=== PATIENT | female | born 1965 | race Caucasian/White ===

== ENCOUNTER 2021-04-17 19:12 | Emergency (ER) | payer MEDICAID ==
[~2021-04-17] VITALS: Ht 152.4 cm; Wt 65.9 kg
[2021-04-17 22:44] VITALS: BP 133/61
== END 2021-04-18 00:28 | disposition home or self-care (01) ==
LOC: ER 19:12
DX: J20.9 Acute bronchitis, unspecified (principal); Z20.822 Contact with and (suspected) exposure to COVID-19
CPT/HCPCS: 71045; 87426; 99283